=== PATIENT | male | born 1965 | race Caucasian/White ===

== ENCOUNTER 2017-06-01 20:12 | Emergency (ER) | payer MEDICAID ==
[~2017-06-01] VITALS: Ht 190.5 cm; Wt 97.5 kg
[2017-06-01] MEDS ORDERED: LOVA40TA2 PO (21:20)
[2017-06-01] MEDS ORDERED: VENTOLIN HFA 90 MCG INHALER (21:20)
[2017-06-01] MEDS ORDERED: BENA20TA2 PO (21:20)
[2017-06-01 21:50] LABS: *BILIRUBIN,URIN NEGATIVE (NEGATIVE); *BLOOD, URINE NEGATIVE (NEGATIVE); *CLARITY,URINE CLEAR (CLEAR); *COLOR,URINE YELLOW (YELLOW); *KETONES,URINE NEGATIVE (NEGATIVE); *PROTEIN,URINE NEGATIVE (NEGATIVE); *UROBILINOGEN,URINE 0.2 E.U./dl (NORMAL); LEUKOCYTE ESTERASE ,URINE NEGATIVE (NEGATIVE); NITRITE, URINE NEGATIVE (NEGATIVE); UGLUCOSE NEGATIVE (NEGATIVE)
[2017-06-01 21:57] LABS: *AMPHETAMINE, URINE NEGATIVE (NEGATIVE); *BARBITURATE, URINE NEGATIVE (NEGATIVE); *CANNABINOID, URINE NEGATIVE (NEGATIVE); *COCCAINE, URINE NEGATIVE (NEGATIVE); *OPIATE, URINE NEGATIVE (NEGATIVE); *PHENCYCLIDINE SCREEN,URINE NEGATIVE (NEGATIVE)
[2017-06-01 22:03] LABS: BACTERIA,URINE NONE SEEN /HPF (NONE SEEN); RBC,URINE 0-3 /HPF (0-3); WBC,URINE 0-3 /HPF (0-3)
[2017-06-01 22:04] LABS: SQUAMOUS EPITHELIAL CELL,UR NONE SEEN /HPF (NONE SEEN)
[2017-06-01 22:22] LABS: ETHANOL 139 MG/DL (0-0)
[2017-06-01 22:27] LABS: ALANINE AMINOTRANSFERASE 34 U/L (16-63); ALKALINE PHOSPHATASE 92 U/L (50-136); ASPARTATE AMINOTRANSFERASE 12 U/L (15-37); BILIRUBIN,DIRECT 0.1 mg/dL (0.0-0.2); BILIRUBIN,TOTAL 0.2 mg/dL (0.2-1.0); CARBON DIOXIDE 22 mmol/L (21-32); CHLORIDE 104 mmol/L (98-107); CREATININE 0.9 mg/dL (0.6-1.3); GLUCOSE 108 mg/dL (74-106); POTASSIUM 3.5 mmol/L (3.5-5.1); TOTAL PROTEIN, SERUM 6.7 g/dL (6.4-8.2); UREA NITROGEN, BLOOD 11 mg/dL (7-18)
[2017-06-01 22:30] LABS: BASOPHILS # (AUTO) 0.1 K/uL (0.0-8.0); BASOPHILS % (AUTO) 1.1 % (0.0-2.0); EOSINOPHILS # (AUTO) 0.5 K/uL (0.0-0.7); EOSINOPHILS % (AUTO) 5.1 % (0.0-7.0); HEMATOCRIT 42.7 % (40-50); HEMOGLOBIN 14.2 G/DL (14.0-18.0); LYMPHOCYTES # (AUTO) 3.2 K/UL (0.8-4.8); LYMPHOCYTES % (AUTO) 30.4 % (20.5-51.5); MEAN CORPUSCULAR HEMOGLOBIN 29.2 UUG (27.0-31.0); MEAN CORPUSCULAR HGB CONC 33 g/dL (32.0-37.0); MEAN CORPUSCULAR VOLUME 87.8 FL (82.0-92.0); MONOCYTES # (AUTO) 1.1 K/UL (0.1-1.30); MONOCYTES % (AUTO) 10.6 % (0.0-11.0); NEUTROPHILS # (AUTO) 5.6 K/UL (1.8-8.9); NEUTROPHILS % (AUTO) 52.8 % (38.5-71.5); PLATELET COUNT (AUTO) 365 K/UL (150-450); RED BLOOD CELL COUNT(AUTO) 4.86 MIL/UL (4.7-6.1); WHITE BLOOD COUNT (AUTO) 10.5 K/UL (4.0-11.2)
--- NOTE | 2017-06-01 22:30 | NUR ---
1:1 sitter at bedside for safety.
[2017-06-01 22:31] LABS: ACETAMINOPHEN < 2.0 ug/mL (10-30)
--- NOTE | 2017-06-01 23:00 | NUR ---
Patient is resting comfortably in bed with eyes closed
--- NOTE | 2017-06-02 00:14 | NUR ---
Call placed to [facility] for PET evaluation, ETA 60 min
--- NOTE | 2017-06-02 01:03 | NUR ---
[facility] at bedside for PET evaluation
--- NOTE | 2017-06-02 02:00 | NUR ---
Per [facility] (PET team), patient to be admitted to [facility] as a voluntary patient. Awaiting response from [place] for report and transportation information.
--- NOTE | 2017-06-02 02:51 | NUR ---
Report given to Demarcus at [facility].
--- NOTE | 2017-06-02 04:38 | NUR ---
Patient Tranfers to outside Facility Physician: Dr. Hoffman Location: [facility]
== END 2017-06-02 04:40 | disposition short-term general hospital (02) ==
LOC: ER 20:15
DX: T42.4X2A Poisoning by benzodiazepines, intentional self-harm, initial encounter (principal); F32.9 Major depressive disorder, single episode, unspecified; I10 Essential (primary) hypertension; E78.00 Pure hypercholesterolemia, unspecified; Y92.9 Unspecified place or not applicable
CPT/HCPCS: 36415; 80048; 80076; 80307; 81001; 85025; 99285; A4663; G0480 ×2; G0481

== ENCOUNTER 2020-04-19 18:14 | Emergency (ER) | payer BC, MEDICAID ==
[~2020-04-19] VITALS: Ht 188 cm; Wt 77.1 kg
[~2020-04-19 18:14] MED LIST: BENA20TA9 PO; LOVA40TA2 PO; VENTOLIN HFA 90 MCG INHALER
[2020-04-19] MEDS ORDERED: ONDA4TAB5 SL (18:28)
[2020-04-19] MEDS ORDERED: ALBU18HF2 IH (18:28)
[2020-04-19] MEDS ORDERED: QUET100T PO (18:28)
[2020-04-19] MEDS ORDERED: OMEP40CA13 PO (18:28)
[2020-04-19] MEDS ORDERED: ONDANSETRON 4 MG/2 ML VIAL IV ONE ×2 (18:45→20:00)
[2020-04-19] MEDS ORDERED: HYDROMORPHONE 1 MG/1 ML DISP.SYRIN IV ONE ×2 (18:45→20:00)
[2020-04-19] MEDS ORDERED: IV NORMAL SALINE 1000 ML BAG IV ONE ×2 (18:45→20:00)
[2020-04-19] MEDS ORDERED: HYDROMORPHONE 2 MG/1 ML DISP.SYRIN ONE ×2 (18:52→20:11)
[2020-04-19] MEDS ORDERED: ONDANSETRON 4 MG/2 ML VIAL ONE ×2 (18:53→20:11)
--- NOTE | 2020-04-19 18:59 | NUR ---
Patient is a "hard stick". IV line inserted with 2 attempts. IV fluids started. Lab staff ([facility]) was called for blood draw, pending urine specimen & chest x-ray. Hands off report given to GAGANDEEP Inman.
--- NOTE | 2020-04-19 19:10 | NUR ---
Patient awake and alert, no acute distress noted at this time. Lab notified for blood draw.
--- NOTE | 2020-04-19 19:21 | NUR ---
Telma from lab to draw blood. US tech at bedside.
[2020-04-19 19:26] LABS: BASOPHILS # (AUTO) 0.1 K/uL (0.0-8.0); BASOPHILS % (AUTO) 1.4 % (0.0-2.0); EOSINOPHILS # (AUTO) 0.2 K/uL (0.0-0.7); HEMATOCRIT 39.6 % (36.7-47.1); LYMPHOCYTES # (AUTO) 1.1 K/uL (20.0-40.0); MEAN CORPUSCULAR HEMOGLOBIN 28.6 uug (23.8-33.4); MEAN CORPUSCULAR HGB CONC 33 g/dL (32.5-36.3); MEAN CORPUSCULAR VOLUME 87.3 fL (73.0-96.2); MONOCYTES # (AUTO) 0.7 K/uL (2.0-10.0); MONOCYTES % (AUTO) 8.6 % (0.0-11.0); NEUTROPHILS # (AUTO) 5.8 K/uL (1.8-8.9); PLATELET COUNT (AUTO) 267 K/uL (152-348); RED BLOOD CELL COUNT(AUTO) 4.53 MIL/uL (4.06-5.63); WHITE BLOOD COUNT (AUTO) 7.9 K/uL (3.6-10.2)
[2020-04-19 19:32] LABS: CREATININE 0.8 mg/dL (0.6-1.3); POTASSIUM 4.3 mmol/L (3.5-5.1)
[2020-04-19 19:38] LABS: BILIRUBIN,DIRECT 2.6 mg/dL (0.0-0.2); BILIRUBIN,TOTAL 3.4 mg/dL (0.2-1.0); TOTAL PROTEIN, SERUM 6.4 g/dL (6.4-8.2)
[2020-04-19 20:08] LABS: *BILIRUBIN,URIN 2+ (NEGATIVE); *CLARITY,URINE CLEAR (CLEAR); *KETONES,URINE 1+ (NEGATIVE); LEUKOCYTE ESTERASE ,URINE NEGATIVE (NEGATIVE); NITRITE, URINE NEGATIVE (NEGATIVE); PH,URINE 6.5 (5.0-8.0); UGLUCOSE NEGATIVE (NEGATIVE)
[2020-04-19 20:18] LABS: *BLOOD, URINE TRACE LYSED (NEGATIVE); *COLOR,URINE DARK YELLOW (YELLOW)
[2020-04-19 20:30] LABS: BACTERIA,URINE NONE SEEN /HPF (NONE SEEN); SQUAMOUS EPITHELIAL CELL,UR FEW /HPF (NONE SEEN); WBC,URINE 0-3 /HPF (0-3)
[2020-04-19 20:31] LABS: CALCIUM OXALATE CRYSTALS,UR MODERATE /HPF (NONE SEEN)
[2020-04-19 21:29] VITALS: BP 120/74
--- NOTE | 2020-04-19 21:29 | NUR ---
Patient discharged to home in stable condition. Written and verbal after care instructions given. Patient verbalizes understanding of instructions. Stressed follow up or return to ER for worsening s/s.
== END 2020-04-19 21:30 | disposition home or self-care (01) ==
LOC: ER 18:14
DX: K85.90 Acute pancreatitis without necrosis or infection, unspecified (principal); R73.9 Hyperglycemia, unspecified; I10 Essential (primary) hypertension; E78.00 Pure hypercholesterolemia, unspecified; Z79.899 Other long term (current) drug therapy; R94.31 Abnormal electrocardiogram [ECG] [EKG]
CPT/HCPCS: 36415; 71045; 76700; 80048; 80076; 81001; 83605; 83690; 84484; 85025; 85730; 93005; 96361; 96374; 96375; 96376; 99285; J1170 ×2; J2405 ×2; 70030-TC; A4663; J7030

== ENCOUNTER 2020-12-09 01:24 | Emergency (ER) | payer BC ==
[~2020-12-09] VITALS: Ht 188 cm; Wt 70.3 kg
[~2020-12-09 01:24] MED LIST changes: +ALBU18HF2 IH; -LOVA40TA2 PO; +OMEP40CA13 PO; +ONDA4TAB5 SL; +QUET100T PO; -VENTOLIN HFA 90 MCG INHALER
--- NOTE | 2020-12-09 01:54 | NUR ---
Dr. Williamson at bedside for MSE.
--- NOTE | 2020-12-09 01:57 | NUR ---
Pt provided urine sample, sent to lab.
[2020-12-09] MEDS ORDERED: IV NORMAL SALINE 1000 ML BAG IV ONE (02:00)
[2020-12-09] MEDS ORDERED: ONDANSETRON 4 MG/2 ML VIAL IV ONE ×2 (02:00→04:00)
[2020-12-09] MEDS ORDERED: HYDROMORPHONE 1 MG/1 ML DISP.SYRIN IV ONE ×2 (02:00→04:00)
[2020-12-09] MEDS ORDERED: SWABABLE VALVE TRANSFER SET EA MC ONE (02:10)
[2020-12-09] MEDS ORDERED: IV NORMAL SALINE 250 ML IV ONE (02:11)
[2020-12-09] MEDS ORDERED: BARIUM SULFATE 450 ML ORAL.SUSP ONE (02:11)
[2020-12-09] MEDS ORDERED: IOHEXOL 300MG/ML 100 ML INFUS..BTL ONE (02:11)
[2020-12-09 02:12] LABS: *BILIRUBIN,URIN NEGATIVE (NEGATIVE); *BLOOD, URINE NEGATIVE (NEGATIVE); *CLARITY,URINE CLEAR (CLEAR); *KETONES,URINE NEGATIVE (NEGATIVE); *UROBILINOGEN,URINE 0.2 E.U./dl (NORMAL); LEUKOCYTE ESTERASE ,URINE NEGATIVE (NEGATIVE); NITRITE, URINE NEGATIVE (NEGATIVE); PH,URINE 6.5 (5.0-8.0); UGLUCOSE NEGATIVE (NEGATIVE)
[2020-12-09] MEDS ORDERED: ONDANSETRON 4 MG/2 ML VIAL ONE ×2 (02:15→03:54)
[2020-12-09] MEDS ORDERED: HYDROMORPHONE 2 MG/1 ML DISP.SYRIN ONE ×2 (02:15→03:54)
[2020-12-09 02:18] LABS: BASOPHILS # (AUTO) 0.1 K/uL (0.0-8.0); BASOPHILS % (AUTO) 0.8 % (0.0-2.0); EOSINOPHILS # (AUTO) 0.6 K/uL (0.0-0.7); EOSINOPHILS % (AUTO) 7.3 % (0.0-7.0); HEMATOCRIT 38.1 % (36.7-47.1); HEMOGLOBIN 12.9 g/dL (12.5-16.3); LYMPHOCYTES % (AUTO) 34.3 % (20.5-51.5); MEAN CORPUSCULAR HGB CONC 34 g/dL (32.5-36.3); MEAN CORPUSCULAR VOLUME 88.7 fL (73.0-96.2); MONOCYTES # (AUTO) 0.7 K/uL (2.0-10.0); MONOCYTES % (AUTO) 7.8 % (0.0-11.0); NEUTROPHILS # (AUTO) 4.4 K/uL (1.8-8.9); NEUTROPHILS % (AUTO) 49.8 % (38.5-71.5); PLATELET COUNT (AUTO) 250 K/uL (152-348); RED BLOOD CELL COUNT(AUTO) 4.29 MIL/uL (4.06-5.63); WHITE BLOOD COUNT (AUTO) 8.8 K/uL (3.6-10.2)
[2020-12-09 02:24] LABS: *COLOR,URINE STRAW (YELLOW)
[2020-12-09 02:27] LABS: CREATININE 0.7 mg/dL (0.6-1.3); POTASSIUM 3.9 mmol/L (3.5-5.1)
[2020-12-09 02:33] LABS: BILIRUBIN,DIRECT 0.1 mg/dL (0.0-0.2); BILIRUBIN,TOTAL 0.3 mg/dL (0.2-1.0); TOTAL PROTEIN, SERUM 6.5 g/dL (6.4-8.2)
--- NOTE | 2020-12-09 03:26 | NUR ---
Pt out of ER for CT.
--- NOTE | 2020-12-09 03:41 | NUR ---
Pt back to ER from CT.
--- NOTE | 2020-12-09 04:27 | NUR ---
Note jose mone in EDM - 12/09/20 at 0427 by ELO Patient discharged to home in stable condition. Written and verbal after care instructions given. Patient verbalizes understanding of instructions. Stressed follow up or return to ER for worsening s/s. Patient out of ER with steady gait, no acute signs of distress, VSS, all belongings taken.
[2020-12-09] MEDS ORDERED: HYDR-3980 PO (04:36)
--- NOTE | 2020-12-09 04:43 | NUR ---
Patient discharged to home in stable condition. Written and verbal after care instructions given. Patient verbalizes understanding of instructions. Stressed follow up or return to ER for worsening s/s. Patient out of ER with steady gait, no acute signs of distress, VSS, all belongings taken, provided a copy of lab and ct results, iv site discontinued.
[2020-12-09 04:44] VITALS: BP 118/64
== END 2020-12-09 04:45 | disposition home or self-care (01) ==
LOC: ER 01:24
DX: R10.9 Unspecified abdominal pain (principal); G89.29 Other chronic pain; Z85.07 Personal history of malignant neoplasm of pancreas; Z98.890 Other specified postprocedural states; F17.210 Nicotine dependence, cigarettes, uncomplicated; I10 Essential (primary) hypertension; Z90.3 Acquired absence of stomach [part of]; Z90.49 Acquired absence of other specified parts of digestive tract
CPT/HCPCS: 36415; 74177; 80048; 80076; 81003; 83690; 85025; 85730; 96361; 96374; 96375; 96376; 99285; 99406; J1170 ×2; J2405 ×2; Q9951; Q9967; A4663; J7030; J7050

== ENCOUNTER 2021-02-16 18:26 | Emergency (ER) | payer BC ==
[~2021-02-16] VITALS: Ht 188 cm; Wt 74.8 kg
[~2021-02-16 18:26] MED LIST changes: +HYDR-3980 PO; -OMEP40CA13 PO; +OMEP40CA21 PO
[2021-02-16] MEDS ORDERED: PROCHLORPERAZINE EDISYLATE 10 MG/2 ML VIAL IV ONE (19:15)
[2021-02-16] MEDS ORDERED: IV NORMAL SALINE 1000 ML BAG IV ONE (19:15)
[2021-02-16] MEDS ORDERED: HYDROMORPHONE 1 MG/1 ML DISP.SYRIN IV ONE ×2 (19:15→22:00)
[2021-02-16 19:49] LABS: HEMATOCRIT 40.5 % (36.7-47.1); MEAN CORPUSCULAR HEMOGLOBIN 28.7 uug (23.8-33.4); MEAN CORPUSCULAR VOLUME 87.2 fL (73.0-96.2); PLATELET COUNT (AUTO) 287 K/uL (152-348)
[2021-02-16 19:51] LABS: CREATININE 0.7 mg/dL (0.6-1.3); POTASSIUM 3.6 mmol/L (3.5-5.1)
[2021-02-16 19:57] LABS: BILIRUBIN,DIRECT 0.1 mg/dL (0.0-0.2); BILIRUBIN,TOTAL 0.5 mg/dL (0.2-1.0); TOTAL PROTEIN, SERUM 6.9 g/dL (6.4-8.2)
--- NOTE | 2021-02-16 20:00 | NUR ---
U/S tech in room with patient.
[2021-02-16] MEDS ORDERED: PROCHLORPERAZINE EDISYLATE 10 MG/2 ML VIAL ONE (20:01)
[2021-02-16] MEDS ORDERED: HYDROMORPHONE 2 MG/1 ML DISP.SYRIN ONE (20:01)
[2021-02-16 20:47] LABS: *BILIRUBIN,URIN NEGATIVE (NEGATIVE); *BLOOD, URINE NEGATIVE (NEGATIVE); *CLARITY,URINE CLEAR (CLEAR); *COLOR,URINE YELLOW (YELLOW); *KETONES,URINE NEGATIVE (NEGATIVE); *UROBILINOGEN,URINE 0.2 E.U./dl (NORMAL); LEUKOCYTE ESTERASE ,URINE NEGATIVE (NEGATIVE); NITRITE, URINE NEGATIVE (NEGATIVE); UGLUCOSE NEGATIVE (NEGATIVE)
--- NOTE | 2021-02-16 21:49 | NUR ---
Pt states takes Pancrease 2400u tid with food.
[2021-02-16] MEDS ORDERED: CYANOCOBALAMIN 1000 MCG/ML VIAL IM ONE (22:15)
[2021-02-16] MEDS ORDERED: HYDROMORPHONE 1 MG/1 ML DISP.SYRIN IV STA (23:03)
[2021-02-16] MEDS ORDERED: HYDROMORPHONE 1 MG/1 ML DISP.SYRIN ONE (23:13)
--- NOTE | 2021-02-16 23:15 | NUR ---
Patient accidently pulled out his angiocath line 22g L hand. MD Moon made aware.
--- NOTE | 2021-02-17 | NUR ---
Patient is resting comfortably in bed with eyes closed. No acute distress noted.
--- NOTE | 2021-02-17 01:15 | NUR ---
Called Home Health Assistant Myra to notify that we do not have VITAMIN B12 injections in the ER pyxis. She states she will bring some.
[2021-02-17] MEDS ORDERED: CYANOCOBALAMIN 1000 MCG/ML VIAL ONE (01:48)
--- NOTE | 2021-02-17 01:50 | NUR ---
Britni Knight RN called from [facility] to notify: Room number: 401 - Med/Surg Report will given to . Accepting MD Pate, Admit Dx: Pancreatitis
--- NOTE | 2021-02-17 02:04 | NUR ---
Report given to GAGANDEEP Fagan at [facility].
--- NOTE | 2021-02-17 02:18 | NUR ---
Rubin Dispatcher NETTA states there are no ambulances available at this time to pick up operator the patient to transfer him to [facility]. He states to call back at 6am.
--- NOTE | 2021-02-17 03:50 | NUR ---
Replaced angiocath line; 20g R hand.
[2021-02-17] MEDS ORDERED: HYDROMORPHONE 1 MG/1 ML DISP.SYRIN IV STA (03:58)
[2021-02-17] MEDS ORDERED: HYDROMORPHONE 1 MG/1 ML DISP.SYRIN ONE ×2 (04:04→06:47)
--- NOTE | 2021-02-17 04:09 | NUR ---
Called [facility] for BLS transport to [facility], spoke with dorinda Mckenzie [phone].
--- NOTE | 2021-02-17 04:10 | NUR ---
Patient states improvement in pain after administration of 1mg of Dilaudid down to 4/10 now.
--- NOTE | 2021-02-17 04:27 | NUR ---
GAGANDEEP Fagan from [facility] called to ask for report to be given again to the day time nurse who will be taking over the patient. Acknowledged. Report will be given once again to .
--- NOTE | 2021-02-17 04:29 | NUR ---
Patient is resting comfortably in bed with eyes closed, no acute distress noted.
--- NOTE | 2021-02-17 06:28 | NUR ---
[facility] S Unit 7[address]. Report given Misak.
--- NOTE | 2021-02-17 06:40 | NUR ---
Patient c/o of abdominal pain and nausea and requesting medication prior to transport with ambulance. MD Mono notified, new orders pending.
[2021-02-17] MEDS ORDERED: ONDANSETRON 4 MG/2 ML VIAL IV ONE (06:45)
[2021-02-17] MEDS ORDERED: HYDROMORPHONE 1 MG/1 ML DISP.SYRIN IV ONE (06:45)
[2021-02-17] MEDS ORDERED: ONDANSETRON 4 MG/2 ML VIAL ONE (06:49)
--- NOTE | 2021-02-17 06:50 | NUR ---
Patient Transfers to outside Facility Physician: MD Pate Location: [facility]; Room 401.
--- NOTE | 2021-02-17 06:57 | NUR ---
Update on report given to GAGANDEEP Fagan.
== END 2021-02-17 06:50 | disposition short-term general hospital (02) ==
LOC: ER 18:26
DX: K85.90 Acute pancreatitis without necrosis or infection, unspecified (principal); E53.8 Deficiency of other specified B group vitamins; Z90.49 Acquired absence of other specified parts of digestive tract; I10 Essential (primary) hypertension; E78.00 Pure hypercholesterolemia, unspecified; F32.9 Major depressive disorder, single episode, unspecified; F10.10 Alcohol abuse, uncomplicated; Z98.890 Other specified postprocedural states; Z20.822 Contact with and (suspected) exposure to COVID-19
CPT/HCPCS: 36415; 76705; 80048; 80076; 81003; 82607; 83605; 83690; 85025; 87426; 93005; 96361; 96372; 96374; 96375; 96376 ×2; 99285; J0780; J1170 ×4; J2405; J3420; J7030

== ENCOUNTER 2021-05-06 15:28 | Emergency (ER) | payer BC ==
[~2021-05-06] VITALS: Ht 188 cm; Wt 74.8 kg
[~2021-05-06 15:28] MED LIST changes: -HYDR-3980 PO; -OMEP40CA21 PO
[2021-05-06] MEDS ORDERED: PANCREAZE PO (15:37)
[2021-05-06] MEDS ORDERED: ONDANSETRON 4 MG/2 ML VIAL IV ONE ×2 (16:00→20:15)
[2021-05-06] MEDS ORDERED: MORPHINE SULFATE 4 MG/1 ML DISP.SYRIN IV ONE ×2 (16:00→17:15)
[2021-05-06 16:06] LABS: HEMATOCRIT 41.3 % (36.7-47.1); MEAN CORPUSCULAR HEMOGLOBIN 28.3 uug (23.8-33.4); MEAN CORPUSCULAR VOLUME 86.8 fL (73.0-96.2); PLATELET COUNT (AUTO) 305 K/uL (152-348)
[2021-05-06 16:12] LABS: CREATININE 0.7 mg/dL (0.6-1.3); POTASSIUM 3.9 mmol/L (3.5-5.1)
[2021-05-06 16:17] LABS: BILIRUBIN,TOTAL 0.2 mg/dL (0.2-1.0)
[2021-05-06] MEDS ORDERED: MORPHINE SULFATE 4 MG/1 ML DISP.SYRIN ONE ×2 (16:42→17:35)
[2021-05-06] MEDS ORDERED: ONDANSETRON 4 MG/2 ML VIAL ONE ×2 (16:44→20:26)
--- NOTE | 2021-05-06 17:01 | NUR ---
medicated for pain as per md order. urine specimen sent to lab.
[2021-05-06 17:14] LABS: *BLOOD, URINE NEGATIVE (NEGATIVE); *COLOR,URINE YELLOW (YELLOW); *KETONES,URINE TRACE (NEGATIVE); *UROBILINOGEN,URINE 0.2 E.U./dl (NORMAL); LEUKOCYTE ESTERASE ,URINE NEGATIVE (NEGATIVE); NITRITE, URINE NEGATIVE (NEGATIVE); PH,URINE 5.5 (5.0-8.0); UGLUCOSE NEGATIVE (NEGATIVE)
[2021-05-06 17:15] LABS: *BILIRUBIN,URIN 1+ (NEGATIVE)
[2021-05-06 17:22] LABS: *CLARITY,URINE SLIGHTLY HAZY (CLEAR); BACTERIA,URINE FEW /HPF (NONE SEEN); CALCIUM OXALATE CRYSTALS,UR FEW /HPF (NONE SEEN); MUCUS,URINE MODERATE /LPF (0-FEW); RBC,URINE 0-3 /HPF (0-3); SQUAMOUS EPITHELIAL CELL,UR NONE SEEN /HPF (NONE SEEN)
--- NOTE | 2021-05-06 18:24 | NUR ---
pt feeling better at this time. to radiology via wheelchair.
[2021-05-06] MEDS ORDERED: IV NORMAL SALINE 250 ML IV ONE (18:36)
[2021-05-06] MEDS ORDERED: SWABABLE VALVE TRANSFER SET EA MC ONE (18:36)
[2021-05-06] MEDS ORDERED: IOHEXOL 300MG/ML 100 ML INFUS..BTL ONE (18:36)
--- NOTE | 2021-05-06 18:58 | NUR ---
came back from radiology; still having recurrent pain. dr jacob notified. medicated for pain as per md order.
[2021-05-06] MEDS ORDERED: HYDROMORPHONE 1 MG/1 ML DISP.SYRIN IV ONE ×2 (19:00→20:15)
[2021-05-06] MEDS ORDERED: HYDROMORPHONE 1 MG/1 ML DISP.SYRIN ONE ×2 (19:08→20:26)
[2021-05-06] MEDS ORDERED: ONDA-104 PO (20:15)
[2021-05-06] MEDS ORDERED: HYDR4TAB4 PO (20:15)
--- NOTE | 2021-05-06 20:28 | NUR ---
IV removed. Catheter intact and site benign. Pressure and 4x4 gauze applied to site. No bleeding noted.
--- NOTE | 2021-05-06 20:29 | NUR ---
Patient discharged to home in stable condition with friend taking patient home. Written and verbal after care instructions given. Patient verbalizes understanding of instructions. Stressed follow up or return to ER for worsening s/s.
[2021-05-06 20:30] VITALS: BP 130/69
[2021-05-07] MEDS ORDERED: HYDR-4209 PO (14:41)
== END 2021-05-06 20:31 | disposition home or self-care (01) ==
LOC: ER 15:31
DX: R10.33 Periumbilical pain (principal); I10 Essential (primary) hypertension; E78.00 Pure hypercholesterolemia, unspecified; K86.1 Other chronic pancreatitis; F32.A Depression, unspecified; Z79.899 Other long term (current) drug therapy; F17.200 Nicotine dependence, unspecified, uncomplicated
CPT/HCPCS: 36415; 74177; 80053; 81001; 83690; 85025; 96374; 96375; 96376; 99285; J1170 ×2; J2270 ×2; J2405 ×2; Q9967; A4663; J7050

== ENCOUNTER 2021-05-07 13:00 | Emergency (ER) | payer BC ==
[~2021-05-07] VITALS: Ht 188 cm; Wt 74.8 kg
[~2021-05-07 13:00] MED LIST changes: +HYDR4TAB4 PO; +ONDA-104 PO; +PANCREAZE PO
--- NOTE | 2021-05-07 14:24 | NUR ---
Dr Malave at the bedside for eval.
[2021-05-07] MEDS ORDERED: HYDR-4209 PO (14:41)
[2021-05-07 14:46] VITALS: BP 132/84
== END 2021-05-07 14:45 | disposition home or self-care (01) ==
LOC: ER 13:00
DX: R10.9 Unspecified abdominal pain (principal); Z76.0 Encounter for issue of repeat prescription
CPT/HCPCS: A4663

== ENCOUNTER 2021-11-26 09:35 | Emergency (ER) | payer BC, OTHER ==
[~2021-11-26] VITALS: Ht 193 cm; Wt 80.3 kg
[~2021-11-26 09:35] MED LIST changes: +HYDR-4209 PO
[2021-11-26] MEDS ORDERED: ATOR20TA PO (09:46)
--- NOTE | 2021-11-26 09:58 | NUR ---
at bedside to examine pt.
[2021-11-26 10:09] LABS: HEMATOCRIT 42.2 % (36.7-47.1); MEAN CORPUSCULAR HEMOGLOBIN 28.5 uug (23.8-33.4); MEAN CORPUSCULAR VOLUME 85.3 fL (73.0-96.2); PLATELET COUNT (AUTO) 259 K/uL (152-348)
[2021-11-26 10:12] LABS: POTASSIUM 4.3 mmol/L (3.5-5.1)
[2021-11-26] MEDS ORDERED: MORPHINE SULFATE 4 MG/1 ML DISP.SYRIN ONE ×2 (10:14→12:22)
[2021-11-26] MEDS ORDERED: ONDANSETRON 4 MG/2 ML VIAL ONE (10:14)
[2021-11-26] MEDS ORDERED: IV NORMAL SALINE 1000 ML BAG IV ONE (10:15)
[2021-11-26] MEDS ORDERED: MORPHINE SULFATE 4 MG/1 ML DISP.SYRIN IV ONE ×2 (10:15→12:15)
[2021-11-26] MEDS ORDERED: ONDANSETRON 4 MG/2 ML VIAL IV ONE (10:15)
[2021-11-26 10:19] LABS: BILIRUBIN,DIRECT 0.1 mg/dL (0.0-0.2); BILIRUBIN,TOTAL 0.4 mg/dL (0.2-1.0); TOTAL PROTEIN, SERUM 7.3 g/dL (6.4-8.2)
[2021-11-26] MEDS ORDERED: IOHEXOL 300MG/ML 100 ML INFUS..BTL ONE (10:33)
[2021-11-26] MEDS ORDERED: IV NORMAL SALINE 250 ML IV ONE (10:34)
[2021-11-26] MEDS ORDERED: SWABABLE VALVE TRANSFER SET EA MC ONE (10:34)
[2021-11-26] MEDS ORDERED: LIDOCAINE VISCUS 2% 15 ML UDC ONE (10:43)
[2021-11-26] MEDS ORDERED: FAMOTIDINE. 20 MG/2 ML VIAL IV ONE ×2 (10:44→10:45)
[2021-11-26] MEDS ORDERED: MAG HYDROX/AL HYDROX/SIMETH 30 ML LIQUID UDC PO ONE (10:45)
[2021-11-26] MEDS ORDERED: LIDOCAINE VISCUS 2% 15 ML UDC MM ONE (10:45)
[2021-11-26] MEDS ORDERED: MAG HYDROX/AL HYDROX/SIMETH 30 ML LIQUID UDC ONE (10:45)
--- NOTE | 2021-11-26 10:54 | NUR ---
Patient taken down for CT abdomen
[2021-11-26 11:47] LABS: *BILIRUBIN,URIN NEGATIVE (NEGATIVE); *BLOOD, URINE NEGATIVE (NEGATIVE); *CLARITY,URINE CLEAR (CLEAR); *COLOR,URINE YELLOW (YELLOW); *KETONES,URINE NEGATIVE (NEGATIVE); *UROBILINOGEN,URINE 0.2 E.U./dl (NORMAL); LEUKOCYTE ESTERASE ,URINE NEGATIVE (NEGATIVE); NITRITE, URINE NEGATIVE (NEGATIVE); PH,URINE 5.5 (5.0-8.0); UGLUCOSE NEGATIVE (NEGATIVE)
[2021-11-26] MEDS ORDERED: HYDR-3974 PO (12:26)
[2021-11-26] MEDS ORDERED: ONDA4TAB5 PO (12:26)
[2021-11-26] MEDS ORDERED: FAMO-132 PO (12:26)
--- NOTE | 2021-11-26 12:37 | NUR ---
DCD instructions given to pt. by rn. Mak pt. verbalized understanding. Pt. left room ambulatory with steady gait pain well controlled as reported.
== END 2021-11-26 12:38 | disposition home or self-care (01) ==
LOC: ER 09:35
DX: R10.10 Upper abdominal pain, unspecified (principal); Z85.07 Personal history of malignant neoplasm of pancreas; Z90.411 Acquired partial absence of pancreas; I10 Essential (primary) hypertension; Z79.899 Other long term (current) drug therapy
CPT/HCPCS: 36415; 74177; 80048; 80076; 81003; 83690; 85025; 96361; 96374; 96375; 96376; 99285; J2270 ×2; J2405; J3490; J7040; Q9967; A4663

== ENCOUNTER 2023-01-12 10:07 | Emergency (ER) | payer OTHER ==
[~2023-01-12] VITALS: Ht 188 cm; Wt 80.7 kg
[~2023-01-12 10:07] MED LIST changes: +ATOR20TA PO; +FAMO-132 PO; +HYDR-3974 PO; -HYDR-4209 PO; -HYDR4TAB4 PO; -ONDA-104 PO; +ONDA4TAB5 PO
[2023-01-12] MEDS ORDERED: MORPHINE SULFATE 2 MG/1 ML DISP.SYRIN IV ONE ×2 (10:30→12:00)
[2023-01-12] MEDS ORDERED: IV NORMAL SALINE 1000 ML BAG IV ONE (10:30)
[2023-01-12] MEDS ORDERED: ONDANSETRON 4 MG/2 ML VIAL IV ONE (10:30)
[2023-01-12] MEDS ORDERED: MORPHINE SULFATE 4 MG/1 ML DISP.SYRIN ONE ×2 (10:50→12:02)
[2023-01-12] MEDS ORDERED: ONDANSETRON 4 MG/2 ML VIAL ONE (10:50)
[2023-01-12 11:08] LABS: HEMATOCRIT 38.1 % (36.7-47.1); PLATELET COUNT (AUTO) 262 K/uL (152-348)
[2023-01-12 11:23] LABS: CREATININE 0.9 mg/dL (0.6-1.3)
[2023-01-12 11:29] LABS: BILIRUBIN,DIRECT 0.1 mg/dL (0.0-0.2); BILIRUBIN,TOTAL 0.6 mg/dL (0.2-1.0); TOTAL PROTEIN, SERUM 6.9 g/dL (6.4-8.2)
[2023-01-12] MEDS ORDERED: IV NORMAL SALINE 250 ML IV ONE (11:45)
[2023-01-12] MEDS ORDERED: SWABABLE VALVE TRANSFER SET EA MC ONE (11:45)
[2023-01-12] MEDS ORDERED: IOHEXOL 300MG/ML 100 ML INFUS..BTL ONE (11:45)
--- NOTE | 2023-01-12 11:59 | NUR ---
"The pain medicine is starting to wear off." per patient's verbalization. MD notified.
--- NOTE | 2023-01-12 12:06 | NUR ---
Patient went to CT but was brought back to ER before the actual CT scan was done. Patient developed mild macular ashes to R arm, no wheezes and no shortness of breath seen, MD notified.
[2023-01-12] MEDS ORDERED: diphenhydrAMINE 50 MG/1 ML VIAL ONE (12:08)
[2023-01-12] MEDS ORDERED: diphenhydrAMINE 50 MG/1 ML VIAL IV ONE (12:15)
--- NOTE | 2023-01-12 12:32 | NUR ---
Patient is resting comfortably on gurney while intermittently using his personal electronic device, NAD. No adverse rxn seen during and post CT scan, pending results and disposition@this time.
--- NOTE | 2023-01-12 12:38 | NUR ---
Patient ambulated to bathroom with steady gait, pending results and disposition.
[2023-01-12] MEDS ORDERED: HYDROCODONE/APAP 5-325MG TABLET ONE (12:59)
[2023-01-12] MEDS ORDERED: ONDANSETRON HCL 4 MG TABLET ONE (12:59)
[2023-01-12] MEDS ORDERED: HYDROCODONE/APAP 5-325MG TABLET PO ONE (13:00)
[2023-01-12] MEDS ORDERED: ONDANSETRON HCL 4 MG TABLET PO ONE (13:00)
--- NOTE | 2023-01-12 13:05 | NUR ---
PO challenge started.
[2023-01-12] MEDS ORDERED: ONDA4TAB5 PO (13:10)
--- NOTE | 2023-01-12 13:47 | NUR ---
Patient passed the po challenge. No vomiting seen while in ER. IV removed. Catheter intact and site benign. Pressure and 4x4 gauze applied to site. No bleeding noted. Patient discharged to home by Dr Foote in stable condition with brisk steady gait. Written and verbal after care instructions given. Patient verbalized understanding and compliance of instructions. Stressed follow up with primary doctor this week as scheduled or return to ER for worsening s/s.
== END 2023-01-12 13:48 | disposition home or self-care (01) ==
LOC: ER 10:10
DX: G89.29 Other chronic pain (principal); R10.13 Epigastric pain; K85.90 Acute pancreatitis without necrosis or infection, unspecified; I10 Essential (primary) hypertension; E78.5 Hyperlipidemia, unspecified; F17.210 Nicotine dependence, cigarettes, uncomplicated; Z71.6 Tobacco abuse counseling; Z79.899 Other long term (current) drug therapy
CPT/HCPCS: 99285; 74177; 96374; 96375; 96361; 80076; 80048; 83690; 85025; 36415; 93005; 96376; J1200; J2405; Q9967; J2270 ×2; J7040; A4663; Q0162